=== PATIENT | male | born 1995 | race Caucasian/White ===

== ENCOUNTER 2017-11-28 21:28 | Emergency (ER) | payer SELFPAY ==
[2017-11-28 23:03] VITALS: BP 102/60
--- NOTE | 2017-11-29 00:31 | ER ---
DATE SEEN: 11/28/2017 CHIEF COMPLAINT: Chest pain. HISTORY OF PRESENT ILLNESS: A 22-year-old male with chest pain that started while he was lying on the floor a few minutes ago, sharp right-sided with no radiation, mild to moderate. REVIEW OF SYSTEMS: No shortness of breath, fever, or chills. PAST MEDICAL HISTORY: No active medical problems. ALLERGIES: No known allergies. PHYSICAL EXAMINATION: GENERAL: He is nontoxic, calm. VITAL SIGNS: Normal blood pressure. Pulse 91 and respiratory rate 22. ENT: Negative. NECK: Trachea is midline. CHEST: PMI is of normal size and location. CARDIOVASCULAR: Normal. LABORATORY DATA: D-dimer, troponin, CRP, ESR all negative. CBC normal. IMAGING STUDIES: Chest x-ray unremarkable. EKG, there is some diffuse ST changes, nonspecific. The computer reading fit [place]. EMERGENCY DEPARTMENT COURSE: I sent him to Cardiology at [place] and the cherry pitter production stage manager looked at it with a comparison, repeated 10 minutes after and agreed that there was no convincing evidence of a STEMI. FINAL IMPRESSION: Pleurisy or chest pain. PLAN: Ibuprofen. Reassurance. I advised him to see Dr. Gray tomorrow morning. DISPOSITION: I discharged him home at 2245 hours. /[id number] HAI/SHARON
--- NOTE | 2017-11-29 13:34 | CR ---
INDICATION: Chest pain. CHEST: Two PA views and a lateral view of the chest were obtained 11/28/2017 - no comparisons. Severe pectus excavatum deformity is present, producing an appearance of enlarged heart, which is felt to be within normal limits in size. Overlying EKG leads are noted. An active infiltrate, effusion, or pneumothorax was not identified. IMPRESSION: No acute process. Severe pectus excavatum deformity. Appearance of enlarged heart is felt to be on the basis of the severe pectus excavatum deformity - correlate clinically. MTDD
--- NOTE | 2017-12-06 08:54 | ER ---
DATE SEEN: 11/28/2017 ADDENDUM: IMPRESSION: 1. Atypical chest pain. 2. Pleurisy. /[id number] HAI/SHARON
== END 2017-11-28 22:55 | disposition home or self-care (01) ==
LOC: FB.ED 21:28
DX: R09.1 Pleurisy (principal); R07.89 Other chest pain
CPT/HCPCS: 36415; 71046; 80048; 84484; 85025; 85379; 85651; 86140; 93005; 99285

== ENCOUNTER 2019-10-04 03:17 | Emergency (ER) | payer BC, OTHER ==
--- NOTE | 2019-10-04 04:23 | EDM.PDOC ---
ED HPI GENERAL MEDICAL PROBLEM - General Chief Complaint: Upper Extremity Injury/Pain Stated Complaint: SHOULDER PAIN Time Seen by Provider: 10/04/19 04:18 Source of Information: Reports: Patient History Limitations: Reports: No Limitations - History of Present Illness INITIAL COMMENTS - FREE TEXT/NARRATIVE: Patient developed pain to the top of his right shoulder @2100 yesterday after putting on his jacket. Symptoms improved after applying a Lidocaine patch. Pain is exacerbated with movement. Patient is s/p pectus excavatum repair @1 month ago. Onset Date: 10/03/19 Onset Time: 21:00 Location: Reports: Upper Extremity, Right Quality: Reports: Ache Severity: Mild Worsens with: Reports: Movement Associated Symptoms: Reports: No Other Symptoms Treatments NEW GRAD RN: Reports: Cold Therapy R shoulder Pain Score (Numeric/FACES): 4 - Related Data Allergies Allergy/AdvReac Type Severity Reaction Status Date / Time No Known Allergies Allergy Verified 10/04/19 03:26 Home Meds: Home Meds oxyCODONE [oxyCODONE ORAL Concentrate 10MG/0.5 ML U/D] 10 mg Q6H PRN 10/04/19 [ History] Past Medical History Musculoskeletal History: Reports: Other (See Below) Other Musculoskeletal History: pectus excavatum - Past Surgical History Musculoskeletal Surgical History: Reports: Other (See Below) Other Musculoskeletal Surgeries/Procedures:: surgery 09/11/19 had pectus excavatum repaired, had thoracic surgery for same Social & Family History - Family History Family Medical History: Noncontributory - Tobacco Use Smoking Status *Q: Never Smoker - Caffeine Use Caffeine Use: Reports: None - Recreational Drug Use Recreational Drug Use: No Review of Systems - Review of Systems Review Of Systems: Comprehensive ROS is negative, except as noted in HPI. ED EXAM, GENERAL - Physical Exam Exam: See Below Exam Limited By: No Limitations General Appearance: Alert, WD/WN, No Apparent Distress Throat/Mouth: No Airway Compromise Head: Atraumatic, Normocephalic Respiratory/Chest: No Respiratory Distress, Lungs Clear, Normal Breath Sounds Cardiovascular: Regular Rate, Rhythm, No Murmur Peripheral Pulses: 2+: Radial (R) Extremities: Normal Inspection, Normal Range of Motion, Non-Tender (right shoulder), Other (mild pain with right shoulder movement) Neurological: Alert, Normal Cognition, No Motor/Sensory Deficits Skin Exam: Warm, Dry, Intact Course - Vital Signs Last Recorded V/S: Last Vital Signs Temp 36.3 C 10/04/19 03:22 Pulse 68 10/04/19 03:22 Resp 18 10/04/19 03:22 BP 119/70 10/04/19 03:22 Pulse Ox 100 10/04/19 03:22 - Orders/Labs/Meds Orders: Active Orders 24 hr Category Date Time Status Shoulder Comp Rt [CR] Stat Exams 10/04/19 03:42 Taken - Radiology Interpretation Free Text/Narrative:: Right Shoulder Xray: no acute osseous abnormalities. (ED provider interpretation ) Departure - Departure Time of Disposition: 04:24 Disposition: Home, Self-Care 01 Condition: Good Clinical Impression: Right shoulder strain Qualifiers: Encounter type: initial encounter Qualified Code(s): S46.911A - Strain of unspecified muscle, fascia and tendon at shoulder and upper arm level, right arm , initial encounter - Discharge Information *PRESCRIPTION DRUG MONITORING PROGRAM REVIEWED*: No *COPY OF PRESCRIPTION DRUG MONITORING REPORT IN PATIENT FOX: Not Applicable Instructions: Shoulder Pain, [id number] Referrals: Mor Gray MD [Primary Care Provider] - Additional Instructions: Rest. Follow up with your primary physician in 3-4 days if symptoms don't improve. Sepsis Event Note - Evaluation Sepsis Screening Result: No Definite Risk - Focused Exam Vital Signs: Vital Signs Temp Pulse Resp BP Pulse Ox 10/04/19 03:22 36.3 C 68 18 119/70 100 Date Exam was Performed: 10/04/19 Time Exam was Performed: 04:18 - My Orders Last 24 Hours: My Active Orders 10/04/19 03:42 Shoulder Comp Rt [CR] Stat - Assessment/Plan Last 24 Hours: My Active Orders 10/04/19 03:42 Shoulder Comp Rt [CR] Stat
[2019-10-04 04:33] VITALS: BP 102/67; PULSE 75
--- NOTE | 2019-10-05 10:12 | CR ---
INDICATION: Put jacket on, pain since. RIGHT SHOULDER: Three views of the right shoulder revealed no evidence of a fracture, dislocation, or other significant bone or joint abnormality. The adjacent ribs were unremarkable. Adjacent lung was unremarkable. MTDD
== END 2019-10-04 04:25 | disposition home or self-care (01) ==
LOC: FB.ED 03:17
DX: S46.911A Strain of unspecified muscle, fascia and tendon at shoulder and upper arm level, right arm, initial encounter (principal); X58.XXXA Exposure to other specified factors, initial encounter
CPT/HCPCS: 73030-RT; 99283-25

== ENCOUNTER 2019-10-17 23:20 | Day surgery (SDC) | payer BC ==
[2019-10-17] MEDS: Lactated Ringers 1,000 ML IV SCH (23:55)
[2019-10-17] MEDS ORDERED: Propofol 200 MG/20 ML SDV IV ONE (23:57)
[2019-10-17] MEDS ORDERED: Lidocaine 1% PF 2 ML SDV INJECT ONE (23:57)
[2019-10-17] MEDS ORDERED: Rocuronium 100 MG/10 ML MDV IV ONE (23:57)
[2019-10-17] MEDS ORDERED: Midazolam 1 MG/ML 2 ML SDV IV ONE (23:57)
[2019-10-17] MEDS ORDERED: Flumazenil 0.1 MG/ML 5 ML MDV IV ONE (23:57)
[2019-10-17] MEDS ORDERED: Lactated Ringers 1,000 ML IV ONE (23:57)
[2019-10-17] MEDS ORDERED: Sugammadex Sodium 200 MG/2 ML VIAL IV ONE (23:57)
--- NOTE | 2019-10-18 00:46 | PCM.HP.2 ---
H&P History of Present Illness - General Date of Service: 10/18/19 - History of Present Illness Initial Comments - Free Text/Narative: Pt was apparently eating a corndog and had some choking. Unable to handle saliva. Originally felt to have an airway obstruction. He was ventilating and maintaining excellent O2 sats. It appeared that he a food impaction. He was intubated to control the airway. Taken to the endoscopy suite for an upper endoscopy. - Related Data Allergies/Adverse Reactions: Allergies Allergy/AdvReac Type Severity Reaction Status Date / Time No Known Allergies Allergy Verified 10/04/19 03:26 Home Medications: Home Meds oxyCODONE [oxyCODONE ORAL Concentrate 10MG/0.5 ML U/D] 10 mg Q6H PRN 10/04/19 [ History] Past Medical History Musculoskeletal History: Reports: Other (See Below) Other Musculoskeletal History: pectus excavatum - Past Surgical History Respiratory Surgical History: Reports: Other (See Below) (Ravitch proceedure for pectus excavatum) Musculoskeletal Surgical History: Reports: Other (See Below) Other Musculoskeletal Surgeries/Procedures:: surgery 09/11/19 had pectus excavatum repaired, had thoracic surgery for same Social & Family History - Family History Family Medical History: Noncontributory - Caffeine Use Caffeine Use: Reports: None H&P Review of Systems - Review of Systems: Review Of Systems: See Below General: Reports: ROS unobtainable (due to secretions, ) Exam - Exam Exam: See Below - Vital Signs Vital Signs: Last Vital Signs Temp 97.8 F 10/18/19 00:25 Pulse 98 10/18/19 00:37 Resp 17 10/18/19 00:37 BP 132/65 10/18/19 00:37 Pulse Ox 96 10/18/19 00:37 - Exam General: Alert, Moderate Distress HEENT: PERRLA, Posterior Pharynx Clear, Other (evidence of a nose bleed left nostril ) Neck: Supple Lungs: Clear to Auscultation Cardiovascular: Regular Rate, Regular Rhythm - Patient Data Lab Results Last 24 hrs: Laboratory Results - last 24 hr 10/17/19 10/17/19 Range/Units 23:25 23:25 WBC 8.1 (4.5-12.0) X10-3/uL RBC 5.49 (4.30-5.75) x10(6)uL Hgb 15.9 (13.5-17.8) g/dL Hct 46.5 (30.0-51.3) % MCV 84.6 (80-96) fL MCH 28.9 (27.7-33.6) pg MCHC 34.1 (32.2-35.4) g/dL RDW 12.3 (11.5-15.5) % Plt Count 342 (125-369) X10(3)uL MPV 5.7 L (7.4-10.4) fL Neut % (Auto) 54.0 (46-82) % Lymph % (Auto) 33.1 (13-37) % Villalba % (Auto) 5.5 (4-12) % Eos % (Auto) 7 H (1.0-5.0) % Baso % (Auto) 1 (0-2) % Neut # (Auto) 4.4 (1.6-8.3) # Lymph # (Auto) 2.7 (0.6-5.0) # Villalba # (Auto) 0.4 (0.0-1.3) # Eos # (Auto) 0.6 (0.0-0.8) # Baso # (Auto) 0.0 (0.0-0.2) # Sodium 143 (135-145) mmol/L Potassium 3.8 (3.5-5.3) mmol/L Chloride 103 (100-110) mmol/L Carbon Dioxide 30 (21-32) mmol/L BUN 19 H (7-18) mg/dL Creatinine 1.1 (0.70-1.30) mg/dL Est Cr Clr Drug Dosing TNP Estimated GFR (MDRD) > 60 (>60) BUN/Creatinine Ratio 17.3 (9-20) Glucose 117 H (80-116) mg/dL Calcium 10.0 (8.6-10.2) mg/dL Total Bilirubin 0.7 (0.1-1.3) mg/dL AST 16 (5-25) IU/L ALT 23 (12-36) U/L Alkaline Phosphatase 79 (56-112) IU/L Total Protein 8.5 H (6.0-8.0) g/dL Albumin 4.3 (3.5-5.2) g/dL Globulin 4.2 g/dL Albumin/Globulin Ratio 1.0 Result Diagrams: 10/17/19 23:25 10/17/19 23:25 Sepsis Event Note - Focused Exam Vital Signs: Vital Signs Temp Pulse Resp BP Pulse Ox 10/18/19 00:37 98 17 132/65 96 10/18/19 00:25 97.8 F 98 18 126/66 96 Date Exam was Performed: 10/18/19 Time Exam was Performed: 00:39 *Q Meaningful Use (ADM) - VTE *Q VTE Pharmacological Contraindications *Q: Patient Scheduled Surgery - Problem List (1) Food impaction of esophagus SNOMED Code(s): 210501703 ICD Code: T18.128A - FOOD IN ESOPHAGUS CAUSING OTHER INJURY, INITIAL ENCOUNTER Status: Acute Current Visit: Yes Qualifiers: Encounter type: initial encounter Qualified Code(s): T18.128A - Food in esophagus causing other injury, initial encounter (2) Esophageal stricture SNOMED Code(s): 84275851 ICD Code: K22.2 - ESOPHAGEAL OBSTRUCTION Status: Acute Current Visit: Yes Problem Details: 20 cm Problem List Initiated/Reviewed/Updated: Yes Orders Last 24hrs: Active Orders 24 hr Category Date Time Status Ready for Discharge [RC] PER UNIT ROUTINE Care 10/18/19 00:39 Ordered Assessment/Plan Comment:: food impaction emergent egd - Mortality Measure Prognosis:: Good
--- NOTE | 2019-10-18 00:55 | PCM.OPNOTE ---
- General Post-Op/Procedure Note Date of Surgery/Procedure: 10/18/19 Operative Procedure(s): egd Findings: food impaction at 20 cm stricture at 20 cm unable to advance the scope. however after clearing bolus esophagus was clear Pre Op Diagnosis: food impaction Post-Op Diagnosis: food impaction. esophageal stricture Anesthesia Technique: General ET Tube Primary Surgeon: Tremayne Arredondo Anesthesia Provider: Arlyn Johnston Pathology: none Complications: None Condition: Good Free Text/Narrative:: see dictation #[id number]
[2019-10-18] MEDS ORDERED: Sodium Chloride 0.9% 10 ML Syringe FLUSH PRN (01:05)
[2019-10-18] MEDS ORDERED: Lactated Ringers 1,000 ML IV SCH (01:15)
[2019-10-18 01:44] VITALS: BP 127/83; PULSE 89
--- NOTE | 2019-10-18 02:00 | OR ---
DATE OF OPERATION: 10/18/2019 SURGEON: Tremayne Arredondo MD PREOPERATIVE DIAGNOSIS: Food impaction. POSTOPERATIVE DIAGNOSIS: Food impaction, esophageal stricture at 20 cm. INDICATIONS FOR PROCEDURE: This is a 24-year-old white male who apparently was eating a corn dog earlier this evening and began to choke, was brought in emergently via ambulance, was noted on arrival here to have excellent oxygen saturations, had an excessive amount of secretions. On questioning the parents, apparently he does have a history of some swallowing issues; had recently undergone a Ravitch procedure for pectus excavatum. Clinically, it appeared that he had a food impaction. He was offered and accepted an EGD to control his airway and to handle his anxiety. He was intubated in [facility] [place] [facility] and was taken to the procedure room. DESCRIPTION OF OPERATION: After arrival to the procedure room, the flexible endoscope was passed down the patient's esophagus. At approximately 20 cm, we encountered some impacted food. This was easily removed with a grasper. On reinserting the scope, it was evident that the patient does have an esophageal stricture at 20 cm, could not advance the scope beyond this stricture. However, we were able to see farther down, able to irrigate, and it appeared that he was able to handle his secretions. We elected not to perform a balloon dilatation as perforation is one of the definite risks and it was felt that this should be attempted at a tertiary care facility with the appropriate surgical backup. At this point, the scope was removed. The patient was awakened in the procedure room and tolerated the procedure quite well. /[id number] /MODL
--- NOTE | 2019-10-23 04:50 | ER ---
DATE SEEN: 10/17/2019 REASON FOR VISIT: Choking on a corn dog. HISTORY OF PRESENT ILLNESS: This is a 24-year-old who came by ambulance because he had choked on a corn dog. He had a previous chest surgery that made it impossible to do Heimlich maneuver, so the ambulance team brought him right away. I was not directly involved in his care as Dr. Arredondo, the trauma surgeon had arrived just as the patient arrived and he took over the care. FINAL IMPRESSION: Foreign body, upper gastrointestinal. PLAN: Please see Dr. Arredondo's note for details. /[id number] HAI/SHARON
== END 2019-10-18 01:39 | disposition home or self-care (01) ==
LOC: FB.ED 23:20 → FB.SDS 23:56
PROVIDERS: ATTEND Surgery
DX: T18.128A Food in esophagus causing other injury, initial encounter (principal); K22.2 Esophageal obstruction
CPT/HCPCS: 36415; 80053; 85025; 99284; J2001; J2250; J2704; J3490; J7120

== ENCOUNTER 2021-11-13 20:16 | Emergency (ER) | payer BC ==
[2021-11-13] MEDS ORDERED: Ondansetron 4 MG Tab.DIS PO ONE (20:17)
[2021-11-13] MEDS ORDERED: Sodium Chloride 0.9% 10 ML Syringe FLUSH PRN (20:28)
[2021-11-13] MEDS ORDERED: Ondansetron 4 MG/2 ML SDV IVPUSH ONE (20:29)
[2021-11-13] MEDS ORDERED: Morphine 4 MG/ML VIAL IVPUSH ONE (20:29)
[2021-11-13] MEDS ORDERED: Sodium Chloride 0.9% 1,000 ML IV SCH (20:30)
[2021-11-13 20:57] VITALS: BP 124/80; PULSE 96
[2021-11-13] MEDS ORDERED: Atropine/Diphenoxylate 0.025-2.5 MG Tab PO STA (21:13)
== END 2021-11-13 21:45 | disposition home or self-care (01) ==
LOC: FB.ED 20:16
DX: K52.9 Noninfective gastroenteritis and colitis, unspecified (principal); E86.0 Dehydration
CPT/HCPCS: 36415; 80053; 82150; 83690; 85025; 96374; 96375; 99283; 99284-25; A9270-GY; J2270; J2405; J3490; J7030; Q0162

== ENCOUNTER 2022-02-14 16:32 | Emergency (ER) | payer OTHER, BC ==
[2022-02-14 16:51] VITALS: BP 130/71; PULSE 74
== END 2022-02-14 18:30 | disposition home or self-care (01) ==
LOC: FB.ED 16:32
DX: S16.1XXA Strain of muscle, fascia and tendon at neck level, initial encounter (principal); R51.9 Headache, unspecified; V43.52XA Car driver injured in collision with other type car in traffic accident, initial encounter; Y92.009 Unspecified place in unspecified non-institutional (private) residence as the place of occurrence of the external cause
CPT/HCPCS: 70450; 72125; 99284

== ENCOUNTER 2022-12-17 20:47 | Emergency (ER) | payer BC, OTHER ==
[2022-12-17] MEDS: Pantoprazole 40 MG Vial IVPUSH ONE (21:26)
[2022-12-17 21:39] LABS: BASOPHILS PERCENT AUTO 0.7 % (0.3-3.8); EOSINOPHILS ABSOLUTE AUTO 0.2 x10-3/uL (0.0-0.6); EOSINOPHILS PERCENT AUTO 4.6 % (0.1-6.8); HEMATOCRIT 42.5 % (38.3-50.1); HEMOGLOBIN 14.8 g/dL (12.9-17.7); LYMPHOCYTES ABSOLUTE AUTO 1.4 x10-3/uL (0.5-4.5); LYMPHOCYTES PERCENT AUTO 32.1 % (15.8-45.3); MEAN CORPUSCULAR HEMOGLOBIN 28.2 pg (27.0-33.3); MEAN CORPUSCULAR HGB CONC 34.7 g/dL (28.7-35.3); MEAN CORPUSCULAR VOLUME 81.3 fL (80.8-98.7); MONOCYTES ABSOLUTE AUTO 0.5 x10-3/uL (0.0-1.2); MONOCYTES PERCENT AUTO 12.1 % (5.5-15.2); NEUTROPHILS ABSOLUTE AUTO 2.2 x10-3/uL (1.7-6.9); NEUTROPHILS PERCENT AUTO 50.5 % (40.3-71.8); PLATELET COUNT,PLT 228 x10(3)uL (117-477); RED BLOOD CELL COUNT 5.23 x10(6)uL (3.90-5.90); RED CELL DISTRIBUTION WIDTH 13.4 % (12.4-15.0); WHITE BLOOD CELL COUNT,WBC 4.3 x10-3/uL (3.2-10.1)
[2022-12-17 21:42] LABS: BLOOD UREA NITROGEN,BUN 16 mg/dL (7-18); CALCIUM 9.7 mg/dL (8.6-10.2); CARBON DIOXIDE,CO2 26 mmol/L (21-32); CHLORIDE,CL 103 mmol/L (100-110); ESTIMATED GFR 106 mL/min (>60); GLUCOSE RANDOM 89 mg/dL (80-116); POTASSIUM,K 3.9 mmol/L (3.5-5.3); SODIUM,NA 139 mmol/L (135-145)
[2022-12-17 21:43] LABS: LIPASE 31 U/L (16-77)
[2022-12-17 21:44] LABS: C-REACTIVE PROTEIN < 0.2 mg/dL (0.5-0.9)
[2022-12-17] MEDS: Sodium Chloride 0.9% 10 ML Syringe FLUSH PRN (21:52)
[2022-12-17 21:54] LABS: A/G RATIO 1.3; ALANINE AMINOTRANSFERASE,ALT 19 U/L (12-36); ALBUMIN 4.5 g/dL (3.5-5.2); ALKALINE PHOSPHATASE 62 IU/L (56-112); ASPARTATE AMNIOTRANSFERASE,AST 21 IU/L (5-25); BILIRUBIN TOTAL 0.8 mg/dL (0.1-1.3); PROTEIN TOTAL,TP 8.1 g/dL (6.0-8.0)
[2022-12-17 22:19] VITALS: BP 142/91; PULSE 67
== END 2022-12-17 22:27 | disposition home or self-care (01) ==
LOC: FB.ED 20:47
DX: K29.60 Other gastritis without bleeding (principal)
CPT/HCPCS: 36415; 80053; 83690; 85025; 86140; 96374; 99284; C9113; J3490

== ENCOUNTER 2024-10-09 07:10 | Emergency (ER) | payer OTHER ==
[2024-10-09] MEDS: Ondansetron 4 MG Tab.DIS PO ONE (08:05)
[2024-10-09] MEDS: Aluminum Hydroxide/Magnesium Hydroxide Susp 30 ML Cup PO ONE (08:05)
[2024-10-09] MEDS: Pantoprazole 20 MG Tab, Delayed Release PO ONE (08:05)
[2024-10-09 08:48] VITALS: BP 125/77; PULSE 89
[2024-10-10] MEDS ORDERED: Pantoprazole 20 MG Tab, Delayed Release PO SCH (07:30)
== END 2024-10-09 08:26 | disposition home or self-care (01) ==
LOC: FB.ED 07:10
DX: K25.3 Acute gastric ulcer without hemorrhage or perforation (principal); J45.909 Unspecified asthma, uncomplicated; Z79.899 Other long term (current) drug therapy
CPT/HCPCS: 99283; A9270-GY; Q0162

== ENCOUNTER 2025-05-23 02:36 | Emergency (ER) | payer OTHER ==
[2025-05-23] MEDS: methylPREDNISolone Sodium Succinate 125 MG/2 ML SDV IM ONE (03:19)
[2025-05-23 03:43] VITALS: BP 133/74; PULSE 71
== END 2025-05-23 03:35 | disposition home or self-care (01) ==
LOC: FB.ED 02:36
DX: J45.901 Unspecified asthma with (acute) exacerbation (principal); R13.10 Dysphagia, unspecified; Z79.899 Other long term (current) drug therapy
CPT/HCPCS: 87651; 94640; 96372; 99285; J2919; J7620; A9270-GY